=== PATIENT | male | born 2000 | race African-American/Black ===

== ENCOUNTER 2019-12-25 16:17 | Emergency (ER) | payer MEDICAID ==
[~2019-12-25] VITALS: Ht 172.7 cm; Wt 140.0 kg
[2019-12-25 16:23] VITALS: BP 151/91
== END 2019-12-25 21:54 | disposition left against medical advice (07) ==
LOC: ER 16:17 → EDBD 16:17 → ER 21:54
DX: Z53.21 Procedure and treatment not carried out due to patient leaving prior to being seen by health care provider (principal)